=== PATIENT | female | born 1990 | race Two or more races ===

== ENCOUNTER 2020-06-16 22:55 | Emergency (ER) | payer SELFPAY ==
[~2020-06-16] VITALS: Ht 152.4 cm; Wt 104.3 kg
--- NOTE | 2020-06-16 23:09 | NUR ---
Dr. Galloway at bedside for MSE.
[2020-06-16 23:15] LABS: *BILIRUBIN,URIN NEGATIVE (NEGATIVE); *BLOOD, URINE NEGATIVE (NEGATIVE); *CLARITY,URINE CLEAR (CLEAR); *COLOR,URINE YELLOW (YELLOW); *KETONES,URINE NEGATIVE (NEGATIVE); *UROBILINOGEN,URINE 0.2 E.U./dl (NORMAL); LEUKOCYTE ESTERASE ,URINE NEGATIVE (NEGATIVE); NITRITE, URINE NEGATIVE (NEGATIVE); UGLUCOSE NEGATIVE (NEGATIVE)
[2020-06-16] MEDS ORDERED: NITROFURANTOIN/NITROFURAN MAC 100 MG CAPSULE PO ONE ×2 (23:29→23:30)
[2020-06-16] MEDS ORDERED: ONDANSETRON 4 MG/2 ML VIAL ONE (23:29)
[2020-06-16] MEDS ORDERED: HYDROMORPHONE 1 MG/1 ML DISP.SYRIN ONE ×2 (23:29→23:54)
[2020-06-16] MEDS ORDERED: HYDROMORPHONE 1 MG/1 ML DISP.SYRIN IV ONE (23:30)
[2020-06-16] MEDS ORDERED: CEFTRIAXONE 1 G in IV DEXTROSE 5% 50 ML IV ONE (23:30)
[2020-06-16] MEDS ORDERED: IV NORMAL SALINE 1000 ML BAG IV ONE (23:30)
[2020-06-16] MEDS ORDERED: ONDANSETRON 4 MG/2 ML VIAL IV ONE (23:30)
[2020-06-16] MEDS ORDERED: CEFTRIAXONE /D5W 50ML IVPB **ER PYXIS IV ONE (23:30)
[2020-06-16 23:34] LABS: *URINE HCG, QUAL NEGATIVE (NEGATIVE)
[2020-06-16 23:47] LABS: BASOPHILS % (AUTO) 0.4 % (0.0-2.0); EOSINOPHILS # (AUTO) 0.5 K/uL (0.0-0.7); EOSINOPHILS % (AUTO) 4.5 % (0.0-7.0); HEMATOCRIT 32.6 % (31.2-41.9); HEMOGLOBIN 10.5 g/dL (10.9-14.3); LYMPHOCYTES % (AUTO) 28.9 % (20.5-51.5); MEAN CORPUSCULAR HEMOGLOBIN 23.4 uug (24.7-32.8); MEAN CORPUSCULAR HGB CONC 32 g/dL (32.3-35.6); MEAN CORPUSCULAR VOLUME 72.4 fL (75.5-95.3); MONOCYTES # (AUTO) 0.5 K/uL (2.0-10.0); MONOCYTES % (AUTO) 4.8 % (0.0-11.0); NEUTROPHILS # (AUTO) 6.3 K/uL (1.8-8.9); NEUTROPHILS % (AUTO) 61.4 % (38.5-71.5); PLATELET COUNT (AUTO) 282 K/uL (179-408); WHITE BLOOD COUNT (AUTO) 10.3 K/uL (3.8-11.8)
[2020-06-17] MEDS ORDERED: HYDROMORPHONE 1 MG/1 ML DISP.SYRIN IV ONE
[2020-06-17] MEDS ORDERED: SWABABLE VALVE TRANSFER SET EA MC ONE (00:01)
[2020-06-17] MEDS ORDERED: IOHEXOL 300MG/ML 100 ML INFUS..BTL ONE (00:01)
[2020-06-17] MEDS ORDERED: IV NORMAL SALINE 250 ML IV ONE (00:01)
[2020-06-17 00:04] LABS: BILIRUBIN,DIRECT 0.1 mg/dL (0.0-0.2); BILIRUBIN,TOTAL 0.4 mg/dL (0.2-1.0); CREATININE 0.8 mg/dL (0.6-1.3); POTASSIUM 3.6 mmol/L (3.5-5.1); TOTAL PROTEIN, SERUM 7.1 g/dL (6.4-8.2)
--- NOTE | 2020-06-17 00:24 | NUR ---
Patient returned from CT scan, set up for pelvic exam.
[2020-06-17 00:25] LABS: EOSINOPHILS % (MANUAL) 5 % (0-8); LYMPHOCYTES % (MANUAL) 25 % (20-40); MONOCYTES % (MANUAL) 5 % (2-10); NEUTROPHILS % (MANUAL) 65 % (42-75)
--- NOTE | 2020-06-17 00:31 | NUR ---
Dr. 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
--- NOTE | 2020-06-17 00:33 | NUR ---
Samples taken to lab.
[2020-06-17] MEDS ORDERED: OXYC-128 PO (00:57)
[2020-06-17 02:22] VITALS: BP 135/72
--- NOTE | 2020-06-17 02:22 | NUR ---
Patient discharged to home in stable condition. Written and verbal after care instructions given. Patient verbalizes understanding of instructions. Stressed follow up or return to ER for worsening s/s.
== END 2020-06-17 02:23 | disposition home or self-care (01) ==
LOC: MERGE 22:57 → ER 22:57
DX: R10.2 Pelvic and perineal pain (principal); M54.89 Other dorsalgia; R30.0 Dysuria; F17.210 Nicotine dependence, cigarettes, uncomplicated; Z88.1 Allergy status to other antibiotic agents
CPT/HCPCS: 36415; 74177; 76856; 80048; 80076; 81003; 83690; 84703; 85007; 85025; 87070; 87086; 87210; 96365; 96375; 96376; 99285; 99406; J0696; J1170 ×2; J2405; Q9967; 70030-TC; A4663; J7030; J7050

== ENCOUNTER 2020-08-20 01:06 | Emergency (ER) | payer SELFPAY ==
[~2020-08-20] VITALS: Ht 154.9 cm; Wt 101.6 kg
[~2020-08-20 01:06] MED LIST: OXYC-128 PO
--- NOTE | 2020-08-20 02:20 | NUR ---
Patient came into the ER along with her mother. patient is complaining of cysts in her armpits and a possible pilonidal abcess on her tailbone. Patient has evidence of past and current cysts in both armpits but has an enlarged cyst on the right armpit that seems to be really bothering her. No evidence of abcess on the sacrum. VS stable, no SOB or signs of distress.
--- NOTE | 2020-08-20 02:25 | NUR ---
Dr. Cole in to examine the patient. Orders received and carried out.
[2020-08-20] MEDS ORDERED: OXYCODONE/APAP 5-325 MG TABLET ONE (03:09)
[2020-08-20] MEDS ORDERED: OXYCODONE/APAP 5-325 MG TABLET PO ONE (03:15)
[2020-08-20] MEDS ORDERED: LIDOCAINE 2%-EPI 1:100,000 20 ML VIAL IJ ONE (03:15)
[2020-08-20 03:19] LABS: BASOPHILS % (AUTO) 0.6 % (0.0-2.0); EOSINOPHILS # (AUTO) 0.3 K/uL (0.0-0.7); EOSINOPHILS % (AUTO) 4.8 % (0.0-7.0); HEMATOCRIT 32.7 % (31.2-41.9); HEMOGLOBIN 10.6 g/dL (10.9-14.3); LYMPHOCYTES # (AUTO) 2.8 K/uL (20.0-40.0); LYMPHOCYTES % (AUTO) 38.2 % (20.5-51.5); MEAN CORPUSCULAR HEMOGLOBIN 24.1 uug (24.7-32.8); MEAN CORPUSCULAR HGB CONC 32 g/dL (32.3-35.6); MEAN CORPUSCULAR VOLUME 74.4 fL (75.5-95.3); MONOCYTES # (AUTO) 0.6 K/uL (2.0-10.0); MONOCYTES % (AUTO) 7.5 % (0.0-11.0); NEUTROPHILS # (AUTO) 3.6 K/uL (1.8-8.9); NEUTROPHILS % (AUTO) 48.9 % (38.5-71.5); PLATELET COUNT (AUTO) 276 K/uL (179-408); RED BLOOD CELL COUNT(AUTO) 4.39 MIL/uL (3.63-4.92); WHITE BLOOD COUNT (AUTO) 7.3 K/uL (3.8-11.8)
[2020-08-20 03:24] LABS: POTASSIUM 3.8 mmol/L (3.5-5.1)
[2020-08-20] MEDS ORDERED: SULF1TAB48 PO (03:42)
[2020-08-20] MEDS ORDERED: OXYC-128 PO (03:43)
--- NOTE | 2020-08-20 03:45 | NUR ---
Dr. Cole completed a lancing of the cyst on the right armpit. Minimal blood loss through the procedure. Wound packed with iodoform packing and wound cleaned with chlorhexadine and dressed with gauze and tegaderm. Patient tolerated procedure without complications or discomfort.
[2020-08-20] MEDS ORDERED: FERR325T28 PO (03:47)
--- NOTE | 2020-08-20 03:50 | NUR ---
Patient discharged to home in stable condition. Written and verbal wound care instructions given. Patient verbalizes understanding of instructions and all medications prescribed. Stressed follow up or return to ER for worsening s/s.
[2020-08-20 03:54] VITALS: BP 120/100
[2020-08-20] MEDS ORDERED: AMOX-430 PO (04:29)
== END 2020-08-20 03:50 | disposition home or self-care (01) ==
LOC: ER 01:11
DX: L02.411 Cutaneous abscess of right axilla (principal); D64.9 Anemia, unspecified; J45.909 Unspecified asthma, uncomplicated; M79.7 Fibromyalgia; Z83.3 Family history of diabetes mellitus; F17.200 Nicotine dependence, unspecified, uncomplicated; Z88.1 Allergy status to other antibiotic agents
CPT/HCPCS: 36415; 85025; 87070; 87077; A4663

== ENCOUNTER 2020-10-13 21:38 | Emergency (ER) | payer SELFPAY ==
[~2020-10-13] VITALS: Ht 154.9 cm; Wt 90.7 kg
[~2020-10-13 21:38] MED LIST changes: +AMOX-430 PO; +FERR325T28 PO
--- NOTE | 2020-10-13 21:55 | NUR ---
Pt came in with c/o dizziness. 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 Pt is A/O x4, no SOB or labored breathing. No c/o chest pain/pressure. No GI/ distress. Ambulatory. Bed in lowest position for safety precautions.
--- NOTE | 2020-10-13 21:59 | NUR ---
Dr. Cole, MSE in progress.
[2020-10-13] MEDS ORDERED: HYDROMORPHONE 1 MG/1 ML DISP.SYRIN IM ONE (22:15)
[2020-10-13] MEDS ORDERED: ONDANSETRON ODT 4 MG TAB.RAPDIS ONE (22:24)
[2020-10-13] MEDS: ONDANSETRON ODT 4 MG TAB.RAPDIS SL ONE (22:25)
[2020-10-13] MEDS ORDERED: HYDROMORPHONE 2 MG/1 ML DISP.SYRIN ONE (22:25)
[2020-10-13] MEDS: LIDOCAINE 2%-EPI 1:100,000 20 ML VIAL IJ ONE (22:39)
[2020-10-13] MEDS ORDERED: LIDOCAINE 2%-EPI 1:100,000 20 ML VIAL ONE (22:43)
[2020-10-13 22:44] LABS: CREATININE 0.7 mg/dL (0.6-1.3); POTASSIUM 4.1 mmol/L (3.5-5.1)
[2020-10-13 22:46] LABS: *BILIRUBIN,URIN NEGATIVE (NEGATIVE); *BLOOD, URINE NEGATIVE (NEGATIVE); *CLARITY,URINE CLEAR (CLEAR); *COLOR,URINE YELLOW (YELLOW); *KETONES,URINE NEGATIVE (NEGATIVE); *UROBILINOGEN,URINE 0.2 E.U./dl (NORMAL); LEUKOCYTE ESTERASE ,URINE TRACE (NEGATIVE); NITRITE, URINE NEGATIVE (NEGATIVE); PH,URINE 7.5 (5.0-8.0); UGLUCOSE NEGATIVE (NEGATIVE)
[2020-10-13] MEDS: HYDROMORPHONE 1 MG/1 ML DISP.SYRIN IV ONE (22:48)
[2020-10-13 22:50] LABS: BILIRUBIN,DIRECT 0.1 mg/dL (0.0-0.2); BILIRUBIN,TOTAL 0.2 mg/dL (0.2-1.0); TOTAL PROTEIN, SERUM 7.2 g/dL (6.4-8.2)
[2020-10-13 22:54] LABS: BASOPHILS % (AUTO) 0.4 % (0.0-2.0); EOSINOPHILS # (AUTO) 0.3 K/uL (0.0-0.7); HEMATOCRIT 35.5 % (31.2-41.9); HEMOGLOBIN 11.5 g/dL (10.9-14.3); LYMPHOCYTES # (AUTO) 1.8 K/uL (20.0-40.0); LYMPHOCYTES % (AUTO) 21.1 % (20.5-51.5); MEAN CORPUSCULAR HEMOGLOBIN 25.3 uug (24.7-32.8); MEAN CORPUSCULAR HGB CONC 33 g/dL (32.3-35.6); MEAN CORPUSCULAR VOLUME 77.8 fL (75.5-95.3); MONOCYTES # (AUTO) 0.5 K/uL (2.0-10.0); MONOCYTES % (AUTO) 5.8 % (0.0-11.0); NEUTROPHILS # (AUTO) 5.9 K/uL (1.8-8.9); NEUTROPHILS % (AUTO) 68.7 % (38.5-71.5); PLATELET COUNT (AUTO) 338 K/uL (179-408); RED BLOOD CELL COUNT(AUTO) 4.56 MIL/uL (3.63-4.92); WHITE BLOOD COUNT (AUTO) 8.5 K/uL (3.8-11.8)
[2020-10-13 22:55] LABS: BACTERIA,URINE FEW /HPF (NONE SEEN); RBC,URINE 0-3 /HPF (0-3); SQUAMOUS EPITHELIAL CELL,UR MANY /HPF (NONE SEEN)
[2020-10-13] MEDS ORDERED: OXYC-128 PO (23:50)
[2020-10-13] MEDS ORDERED: SULF1TAB48 PO (23:50)
--- NOTE | 2020-10-14 00:20 | NUR ---
Patient discharged to home in stable condition. A/O x4, no SOB or labored breathing. Afebrile. No c/o n/v. Written and verbal after care instructions given. Patient verbalizes understanding of instructions. Stressed follow up or return to ER for worsening s/s. Steady gait. Picked up by family.
[2020-10-14 00:24] VITALS: BP 142/90
== END 2020-10-14 00:20 | disposition home or self-care (01) ==
LOC: ER 21:39
DX: B34.9 Viral infection, unspecified (principal); D64.9 Anemia, unspecified; L02.412 Cutaneous abscess of left axilla; Z83.3 Family history of diabetes mellitus; J45.909 Unspecified asthma, uncomplicated; M79.7 Fibromyalgia; E66.9 Obesity, unspecified; Z68.37 Body mass index [BMI] 37.0-37.9, adult
CPT/HCPCS: 10061; 36415; 80048; 80076; 81001; 85025; 87040; 87070; 96374; 99284; J1170; 87077; A4663; Q0162

== ENCOUNTER 2020-10-16 20:24 | Emergency (ER) | payer SELFPAY ==
[~2020-10-16] VITALS: Ht 162.6 cm; Wt 104.3 kg
[~2020-10-16 20:24] MED LIST changes: +SULF1TAB48 PO
--- NOTE | 2020-10-16 20:30 | NUR ---
Pt BIB [facility] 83 d/t an allergic reaction to Bactrim. Pt is A/O x4, no c/o chest pain/pressure. No SOB or labored breathing. Pt states she took Benadryl at 1600 and felt better. Pt is cooperative, no slurred speech, complete sentences.
--- NOTE | 2020-10-16 20:34 | NUR ---
Dr. Moreno at bedside, MSE in progress.
[2020-10-16] MEDS ORDERED: EPINEPHRINE 1 MG/1 ML AMP ONE (20:43)
[2020-10-16] MEDS ORDERED: methylPREDNISolone SOD SUCC 125 MG/2 ML VIAL IV ONE (20:45)
[2020-10-16] MEDS ORDERED: diphenhydrAMINE 50 MG/1 ML VIAL IV ONE (20:45)
[2020-10-16] MEDS ORDERED: FAMOTIDINE. 20 MG/2 ML VIAL IV ONE ×2 (20:45→20:55)
[2020-10-16] MEDS ORDERED: EPINEPHRINE 1 MG/1 ML AMP SQ ONE (20:45)
[2020-10-16] MEDS ORDERED: diphenhydrAMINE 50 MG/1 ML VIAL ONE (20:54)
[2020-10-16] MEDS ORDERED: methylPREDNISolone SOD SUCC 125 MG/2 ML VIAL ONE (20:54)
[2020-10-16] MEDS ORDERED: KETOROLAC TROMETHAMINE 30 MG INJ IVP ONE (21:30)
[2020-10-16] MEDS ORDERED: LIDOCAINE VISCUS 2% 15 ML UDC MM ONE (21:30)
[2020-10-16] MEDS ORDERED: MAG HYDROX/AL HYDROX/SIMETH 30 ML LIQUID UDC PO ONE (21:30)
[2020-10-16] MEDS ORDERED: LIDOCAINE VISCUS 2% 15 ML UDC ONE (21:37)
[2020-10-16] MEDS ORDERED: KETOROLAC TROMETHAMINE 30 MG INJ ONE (21:37)
[2020-10-16] MEDS ORDERED: MAG HYDROX/AL HYDROX/SIMETH 30 ML LIQUID UDC ONE (21:37)
[2020-10-16] MEDS ORDERED: HYDROCODONE/APAP 5-325MG TABLET PO ONE (22:00)
[2020-10-16] MEDS ORDERED: PHENAZOPYRIDINE HCL 100 MG TABLET PO ONE (22:00)
[2020-10-16] MEDS ORDERED: ONDANSETRON 4 MG/2 ML VIAL IV ONE (22:30)
[2020-10-16] MEDS ORDERED: MORPHINE SULFATE 4 MG/1 ML DISP.SYRIN IV ONE (22:30)
[2020-10-16] MEDS ORDERED: FLUCONAZOLE 100 MG TABLET PO ONE (22:30)
[2020-10-16] MEDS ORDERED: IV NORMAL SALINE 1000 ML BAG IV ONE (22:30)
[2020-10-16] MEDS ORDERED: CLOT10TR6 MM (22:46)
[2020-10-16] MEDS ORDERED: MICO45CR77 VG (22:46)
[2020-10-16] MEDS ORDERED: HYDR-3980 PO (22:46)
[2020-10-16] MEDS ORDERED: ONDANSETRON 4 MG/2 ML VIAL ONE (22:47)
[2020-10-16] MEDS ORDERED: MORPHINE SULFATE 4 MG/1 ML DISP.SYRIN ONE (22:47)
[2020-10-16] MEDS ORDERED: FLUCONAZOLE 100 MG TABLET ONE (22:47)
[2020-10-16 23:22] LABS: *BILIRUBIN,URIN NEGATIVE (NEGATIVE); *COLOR,URINE YELLOW (YELLOW); *KETONES,URINE NEGATIVE (NEGATIVE); *UROBILINOGEN,URINE 0.2 E.U./dl (NORMAL); LEUKOCYTE ESTERASE ,URINE 2+ (NEGATIVE); NITRITE, URINE NEGATIVE (NEGATIVE); UGLUCOSE NEGATIVE (NEGATIVE)
[2020-10-16 23:25] LABS: *BLOOD, URINE TRACE (NEGATIVE); *CLARITY,URINE HAZY (CLEAR)
[2020-10-16 23:29] LABS: BACTERIA,URINE FEW /HPF (NONE SEEN); SQUAMOUS EPITHELIAL CELL,UR MODERATE /HPF (NONE SEEN)
--- NOTE | 2020-10-16 23:56 | NUR ---
Patient discharged to home in stable condition. A/O x4, no SOB or labored breathing. Afebrile. No c/o pain or discomfort. Written and verbal after care instructions given. Patient verbalizes understanding of instructions. Stressed follow up or return to ER for worsening s/s. Steady gait, picked up by family member.
[2020-10-16 23:57] VITALS: BP 104/68
[2020-10-17] MEDS ORDERED: HYDR-3980 PO (19:02)
[2020-10-17] MEDS ORDERED: FLUC200T PO (19:02)
== END 2020-10-16 23:58 | disposition home or self-care (01) ==
LOC: ER 20:26
DX: B37.0 Candidal stomatitis (principal); B37.3 Candidiasis of vulva and vagina; R73.9 Hyperglycemia, unspecified; J45.909 Unspecified asthma, uncomplicated; M79.7 Fibromyalgia; Z88.1 Allergy status to other antibiotic agents; Z88.2 Allergy status to sulfonamides; Z83.3 Family history of diabetes mellitus
CPT/HCPCS: 81001; 82962; 87086; 96361; 96372; 96374; 96375; 99284; J0171; J1200; J1885; J2270; J2405; J2930; J3490; A4663

== ENCOUNTER 2020-10-17 18:30 | Emergency (ER) | payer SELFPAY ==
[~2020-10-17] VITALS: Ht 162.6 cm; Wt 104.3 kg
[~2020-10-17 18:30] MED LIST changes: +CLOT10TR6 MM; +HYDR-3980 PO; +MICO45CR77 VG
[2020-10-17] MEDS ORDERED: ONDANSETRON ODT 4 MG TAB.RAPDIS SL ONE (19:00)
[2020-10-17] MEDS ORDERED: HYDROMORPHONE HCL 2 MG TABLET PO ONE (19:00)
[2020-10-17] MEDS ORDERED: FLUCONAZOLE 100 MG TABLET PO ONE (19:00)
--- NOTE | 2020-10-17 19:00 | NUR ---
chaperoned Dr. Galloway with vaginal eaxam.
[2020-10-17] MEDS ORDERED: HYDR-3980 PO (19:02)
[2020-10-17] MEDS ORDERED: FLUC200T PO (19:02)
[2020-10-17] MEDS ORDERED: ONDANSETRON ODT 4 MG TAB.RAPDIS ONE (19:12)
[2020-10-17] MEDS ORDERED: FLUCONAZOLE 100 MG TABLET ONE (19:13)
[2020-10-17] MEDS ORDERED: HYDROMORPHONE HCL 2 MG TABLET ONE (19:13)
[2020-10-17] MEDS ORDERED: LIDOCAINE VISCUS 2% 15 ML UDC ONE (19:33)
[2020-10-17] MEDS ORDERED: LIDOCAINE VISCUS 2% 15 ML UDC MM ONE (19:45)
== END 2020-10-17 19:36 | disposition home or self-care (01) ==
LOC: ER 18:32
DX: B37.3 Candidiasis of vulva and vagina (principal); G89.29 Other chronic pain; F17.210 Nicotine dependence, cigarettes, uncomplicated; Z83.3 Family history of diabetes mellitus; M79.7 Fibromyalgia; E66.9 Obesity, unspecified; Z68.39 Body mass index [BMI] 39.0-39.9, adult; F11.20 Opioid dependence, uncomplicated; Z88.1 Allergy status to other antibiotic agents; Z88.2 Allergy status to sulfonamides; R73.03 Prediabetes; J45.909 Unspecified asthma, uncomplicated
CPT/HCPCS: A4663; Q0162

== ENCOUNTER 2020-12-13 23:52 | Emergency (ER) | payer SELFPAY ==
[~2020-12-13] VITALS: Ht 162.6 cm; Wt 90.7 kg
[~2020-12-13 23:52] MED LIST changes: +FLUC200T PO
--- NOTE | 2020-12-14 00:29 | NUR ---
Dr. Moreno at bedside for mse
[2020-12-14] MEDS ORDERED: OXYCODONE/APAP 5-325 MG TABLET PO ONE (00:45)
[2020-12-14] MEDS ORDERED: AMOXicillin 250 MG CAPSULE PO ONE (00:45)
[2020-12-14] MEDS ORDERED: AMOX1TAB16 PO (00:47)
[2020-12-14] MEDS ORDERED: NEOM10DR11 RIGHT EAR (00:47)
[2020-12-14] MEDS ORDERED: OXYC-133 PO (00:47)
--- NOTE | 2020-12-14 00:49 | NUR ---
Pt has sharp intermittent rt ear pain 8/10 starting 2 days ago.
[2020-12-14] MEDS ORDERED: OXYCODONE/APAP 5-325 MG TABLET ONE (00:50)
[2020-12-14] MEDS ORDERED: AMOXicillin 250 MG CAPSULE ONE (00:50)
--- NOTE | 2020-12-14 00:53 | NUR ---
Patient discharged to home in stable condition. Written and verbal after care instructions given. Patient verbalizes understanding of instructions. Stressed follow up or return to ER for worsening s/s. Patient out of ER with steady gait, no acute signs of distress, VSS, all belongings taken.
[2020-12-14 00:54] VITALS: BP 149/97
== END 2020-12-14 00:55 | disposition home or self-care (01) ==
LOC: ER 23:54
DX: H66.91 Otitis media, unspecified, right ear (principal); Z88.1 Allergy status to other antibiotic agents; Z88.2 Allergy status to sulfonamides; G89.29 Other chronic pain; R73.03 Prediabetes; F11.20 Opioid dependence, uncomplicated; E66.9 Obesity, unspecified; Z68.34 Body mass index [BMI] 34.0-34.9, adult; M79.7 Fibromyalgia; J45.909 Unspecified asthma, uncomplicated
CPT/HCPCS: A4663

== ENCOUNTER 2021-04-16 16:54 | Emergency (ER) | payer SELFPAY ==
[~2021-04-16] VITALS: Ht 152.4 cm; Wt 106.6 kg
[~2021-04-16 16:54] MED LIST changes: +AMOX1TAB16 PO; +NEOM10DR11 RIGHT EAR; +OXYC-133 PO
--- NOTE | 2021-04-16 17:51 | NUR ---
Patient will wait in ER waiting room until an available ER room (with available ER nurse) opens up.
--- NOTE | 2021-04-16 18:11 | NUR ---
Urine sent to lab.
[2021-04-16 18:40] LABS: *BILIRUBIN,URIN NEGATIVE (NEGATIVE); *BLOOD, URINE 3+ (NEGATIVE); *CLARITY,URINE CLEAR (CLEAR); *COLOR,URINE YELLOW (YELLOW); *KETONES,URINE NEGATIVE (NEGATIVE); *UROBILINOGEN,URINE 0.2 E.U./dl (NORMAL); LEUKOCYTE ESTERASE ,URINE 1+ (NEGATIVE); NITRITE, URINE NEGATIVE (NEGATIVE); UGLUCOSE NEGATIVE (NEGATIVE)
[2021-04-16 18:41] LABS: *URINE HCG, QUAL NEGATIVE (NEGATIVE)
--- NOTE | 2021-04-16 19:19 | NUR ---
Patient is waiting comfortably in the ER waiting room, SBAR to propellant charge loader Albert.
--- NOTE | 2021-04-16 19:37 | NUR ---
Pt not in waiting room.
--- NOTE | 2021-04-16 20:33 | NUR ---
Dr. Galloway at bedside for MSE.
--- NOTE | 2021-04-16 20:35 | NUR ---
pt c/o blood in urine, pt c/o abd pain. pt amb to room without assist, denies c/p sob or dizziness.
--- NOTE | 2021-04-16 20:44 | NUR ---
pt went to cat scan.
[2021-04-16] MEDS ORDERED: ONDANSETRON ODT 4 MG TAB.RAPDIS SL ONE (20:45)
[2021-04-16] MEDS ORDERED: HYDROCODONE/APAP 10-325 MG TABLET PO ONE (20:45)
[2021-04-16 20:49] LABS: MEAN CORPUSCULAR HEMOGLOBIN 27.4 uug (24.7-32.8); MEAN CORPUSCULAR VOLUME 81.4 fL (75.5-95.3); PLATELET COUNT (AUTO) 315 K/uL (179-408)
[2021-04-16] MEDS ORDERED: HYDROCODONE/APAP 10-325 MG TABLET ONE (20:49)
[2021-04-16] MEDS ORDERED: ONDANSETRON ODT 4 MG TAB.RAPDIS ONE (20:49)
[2021-04-16 20:58] LABS: CREATININE 0.9 mg/dL (0.6-1.3)
[2021-04-16 21:03] LABS: BILIRUBIN,DIRECT 0.1 mg/dL (0.0-0.2); BILIRUBIN,TOTAL 0.2 mg/dL (0.2-1.0); TOTAL PROTEIN, SERUM 7.2 g/dL (6.4-8.2)
--- NOTE | 2021-04-16 21:05 | NUR ---
pt return from ct scan.
[2021-04-16] MEDS ORDERED: NITROFURANTOIN/NITROFURAN MAC 100 MG CAPSULE PO ONE ×2 (22:00→22:22)
[2021-04-16] MEDS ORDERED: NITR-84 PO (22:27)
[2021-04-16] MEDS ORDERED: HYDR-3980 PO (22:27)
--- NOTE | 2021-04-16 23:17 | NUR ---
Patient discharged to home in stable condition. Written and verbal after care instructions given. Patient verbalizes understanding of instructions. Stressed follow up or return to ER for worsening s/s. pt amb without assit, denies pain or sob.
[2021-04-16 23:18] VITALS: BP 150/80
[2021-04-17 05:35] LABS: BACTERIA,URINE FEW /HPF (NONE SEEN); SQUAMOUS EPITHELIAL CELL,UR MANY /HPF (NONE SEEN)
== END 2021-04-16 23:22 | disposition home or self-care (01) ==
LOC: ER 16:55
DX: R10.30 Lower abdominal pain, unspecified (principal); H92.01 Otalgia, right ear; R30.0 Dysuria; R31.29 Other microscopic hematuria; F17.210 Nicotine dependence, cigarettes, uncomplicated; Z83.3 Family history of diabetes mellitus; Z88.1 Allergy status to other antibiotic agents; Z88.2 Allergy status to sulfonamides; G89.29 Other chronic pain; E66.9 Obesity, unspecified; Z68.42 Body mass index [BMI] 45.0-49.9, adult; M79.7 Fibromyalgia; F11.20 Opioid dependence, uncomplicated; J45.909 Unspecified asthma, uncomplicated
CPT/HCPCS: 83690; 84703; 85025; 87086; A4663; Q0162

== ENCOUNTER 2021-06-24 01:16 | Emergency (ER) | payer SELFPAY ==
[~2021-06-24] VITALS: Ht 152.4 cm; Wt 104.3 kg
[~2021-06-24 01:16] MED LIST changes: +NITR-84 PO
[2021-06-24 02:23] LABS: HEMATOCRIT 36.3 % (31.2-41.9); MEAN CORPUSCULAR HEMOGLOBIN 27.2 uug (24.7-32.8); PLATELET COUNT (AUTO) 343 K/uL (179-408)
[2021-06-24 02:29] LABS: CREATININE 0.8 mg/dL (0.6-1.3); POTASSIUM 3.7 mmol/L (3.5-5.1)
[2021-06-24 02:34] LABS: BILIRUBIN,DIRECT 0.1 mg/dL (0.0-0.2); BILIRUBIN,TOTAL 0.4 mg/dL (0.2-1.0); TOTAL PROTEIN, SERUM 8.1 g/dL (6.4-8.2)
[2021-06-24] MEDS ORDERED: MORPHINE SULFATE 2 MG/1 ML DISP.SYRIN IM ONE (02:45)
[2021-06-24] MEDS ORDERED: METOCLOPRAMIDE HCL 10 MG/2 ML VIAL IM ONE (02:45)
[2021-06-24] MEDS ORDERED: diphenhydrAMINE 50 MG/1 ML VIAL IM ONE (02:45)
[2021-06-24] MEDS ORDERED: KETOROLAC TROMETHAMINE 60 MG INJ IM ONE ×2 (02:45→03:17)
[2021-06-24] MEDS ORDERED: diphenhydrAMINE 50 MG/1 ML VIAL ONE (03:16)
--- NOTE | 2021-06-24 03:16 | NUR ---
PATIENT OUT OF UNIT FOR CT SCAN
[2021-06-24] MEDS ORDERED: MORPHINE SULFATE 2 MG/1 ML DISP.SYRIN ONE (03:17)
[2021-06-24] MEDS ORDERED: METOCLOPRAMIDE HCL 10 MG/2 ML VIAL ONE (03:17)
--- NOTE | 2021-06-24 03:25 | NUR ---
PATIENT BACK FROM CT SCAN WITH NO DISTRESS NOTED.
[2021-06-24] MEDS ORDERED: MORPHINE SULFATE 4 MG/1 ML DISP.SYRIN IM ONE (04:00)
[2021-06-24] MEDS ORDERED: MORPHINE SULFATE 4 MG/1 ML DISP.SYRIN ONE (04:11)
[2021-06-24 06:10] VITALS: BP 131/72
--- NOTE | 2021-06-24 06:10 | NUR ---
Patient discharged to home in stable condition WITH FAMILY TAKING PATIENT HOME. Written and verbal after care instructions given. Patient verbalizes understanding of instructions. Stressed follow up or return to ER for worsening s/s.
== END 2021-06-24 06:11 | disposition home or self-care (01) ==
LOC: ER 01:39
DX: R51.9 Headache, unspecified (principal); J45.909 Unspecified asthma, uncomplicated; F17.210 Nicotine dependence, cigarettes, uncomplicated; Z88.1 Allergy status to other antibiotic agents; Z88.8 Allergy status to other drugs, medicaments and biological substances; Z79.2 Long term (current) use of antibiotics; Z79.899 Other long term (current) drug therapy
CPT/HCPCS: 70450; 80048; 80076; 84702; 85025; 96372 ×5; 99284; J1200; J1885; J2270 ×2; J2765; A4663

== ENCOUNTER 2021-09-26 06:35 | Emergency (ER) | payer SELFPAY ==
[~2021-09-26] VITALS: Ht 152.4 cm; Wt 104.3 kg
[2021-09-26] MEDS ORDERED: LIDOCAINE 1%-EPI 1:100,000 20 ML VIAL ONE (07:11)
--- NOTE | 2021-09-26 07:22 | NUR ---
PT IS IN ROOM #1B. DR ENG EVALUATED THE PT.
[2021-09-26] MEDS ORDERED: CLINDAMYCIN HCL 300 MG CAPSULE ONE (07:27)
[2021-09-26] MEDS ORDERED: CLINDAMYCIN HCL 150 MG CAPSULE PO ONE (07:30)
--- NOTE | 2021-09-26 07:31 | NUR ---
Female results engineer accompanied female patient for (Dr Quintana).
[2021-09-26] MEDS ORDERED: CLIN300C12 PO (07:39)
[2021-09-26] MEDS ORDERED: TRAM50TA2 PO (07:39)
[2021-09-26] MEDS ORDERED: IBUP-1955 PO (07:39)
[2021-09-26] MEDS ORDERED: HYDROCODONE/APAP 10-325 MG TABLET ONE (07:43)
[2021-09-26] MEDS ORDERED: LIDOCAINE 1%-EPI 1:100,000 20 ML VIAL IJ ONE (07:45)
[2021-09-26] MEDS ORDERED: HYDROCODONE/APAP 10-325 MG TABLET PO ONE (07:45)
--- NOTE | 2021-09-26 07:52 | NUR ---
PT WAS D/C'd TO HOME. D/C INSTRUCTIONS GIVEN TO THE PT BY DR ENG.
[2021-09-26 07:53] VITALS: BP 142/71
== END 2021-09-26 07:54 | disposition home or self-care (01) ==
LOC: ER 06:39
DX: L02.415 Cutaneous abscess of right lower limb (principal); K08.89 Other specified disorders of teeth and supporting structures; K12.2 Cellulitis and abscess of mouth; K02.9 Dental caries, unspecified; E66.9 Obesity, unspecified; Z68.41 Body mass index [BMI] 40.0-44.9, adult; M79.7 Fibromyalgia; F17.210 Nicotine dependence, cigarettes, uncomplicated; G89.29 Other chronic pain; F11.20 Opioid dependence, uncomplicated
CPT/HCPCS: 10060; 76882; 99284; J3490; A4663

== ENCOUNTER 2021-10-01 21:48 | Emergency (ER) | payer MEDICAID ==
[~2021-10-01] VITALS: Ht 152.4 cm; Wt 104.3 kg
[~2021-10-01 21:48] MED LIST changes: +CLIN300C12 PO; +IBUP-1955 PO; +TRAM50TA2 PO
--- NOTE | 2021-10-01 21:55 | NUR ---
PT CAME INTO ER C/O BODYACHES THAT STARTED YESTERDAY ACCOMPANIED WITH 6 EPSIDOES OF N/V. NO SOB OR LABORED BREATHING, AFEBRILE. DENIES CP/PRESSURE AT THIS TIME. CLEAR SPEECH, COMPLETE SENTENCES. AMBULATING WITH STEADY GAIT. ABLE TO MOVE ALL EXTREMITIES WNL. A/O X4.
--- NOTE | 2021-10-01 22:24 | NUR ---
DR. ENG AT BEDSIDE, MSE IN PROGRESS.
[2021-10-01] MEDS ORDERED: ONDANSETRON 4 MG/2 ML VIAL ONE ×2 (22:28→23:31)
[2021-10-01] MEDS ORDERED: ONDANSETRON 4 MG/2 ML VIAL IV ONE ×2 (22:30→23:30)
[2021-10-01] MEDS ORDERED: IV NORMAL SALINE 1000 ML BAG IV ONE (22:30)
--- NOTE | 2021-10-01 22:33 | NUR ---
xray at bedside.
--- NOTE | 2021-10-01 23:00 | NUR ---
[facility] ENG FOR GROIN EXAM.
[2021-10-01 23:30] LABS: HEMATOCRIT 32.1 % (31.2-41.9); MEAN CORPUSCULAR HEMOGLOBIN 27.3 uug (24.7-32.8); MEAN CORPUSCULAR VOLUME 80.3 fL (75.5-95.3); PLATELET COUNT (AUTO) 189 K/uL (179-408)
[2021-10-01 23:35] LABS: BILIRUBIN,DIRECT 0.1 mg/dL (0.0-0.2); BILIRUBIN,TOTAL 0.2 mg/dL (0.2-1.0); CREATININE 0.7 mg/dL (0.6-1.3); POTASSIUM 3.8 mmol/L (3.5-5.1); TOTAL PROTEIN, SERUM 7.3 g/dL (6.4-8.2)
[2021-10-01 23:40] LABS: *BILIRUBIN,URIN NEGATIVE (NEGATIVE); *BLOOD, URINE 3+ (NEGATIVE); *CLARITY,URINE CLEAR (CLEAR); *COLOR,URINE YELLOW (YELLOW); *KETONES,URINE NEGATIVE (NEGATIVE); *UROBILINOGEN,URINE 0.2 E.U./dl (NORMAL); LEUKOCYTE ESTERASE ,URINE NEGATIVE (NEGATIVE); NITRITE, URINE NEGATIVE (NEGATIVE); UGLUCOSE NEGATIVE (NEGATIVE)
[2021-10-01 23:55] LABS: *URINE HCG, QUAL NEGATIVE (NEGATIVE)
[2021-10-01] MEDS ORDERED: KETOROLAC TROMETHAMINE 30 MG INJ ONE (23:55)
[2021-10-01 23:56] LABS: BACTERIA,URINE FEW /HPF (NONE SEEN); RBC,URINE 50-80 /HPF (0-3); SQUAMOUS EPITHELIAL CELL,UR MODERATE /HPF (NONE SEEN); WBC,URINE 0-3 /HPF (0-3)
[2021-10-02] MEDS ORDERED: KETOROLAC TROMETHAMINE 30 MG INJ IVP ONE
--- NOTE | 2021-10-02 00:06 | NUR ---
PT RETURNED FROM CT.
[2021-10-02] MEDS ORDERED: HYDROCODONE/APAP 10-325 MG TABLET ONE (01:27)
[2021-10-02] MEDS ORDERED: HYDROCODONE/APAP 10-325 MG TABLET PO ONE (01:30)
[2021-10-02] MEDS ORDERED: ONDA4TAB5 PO (01:44)
--- NOTE | 2021-10-02 02:53 | NUR ---
Patient discharged to home in stable condition. Written and verbal after care instructions given. Patient verbalizes understanding of instructions. Stressed follow up or return to ER for worsening s/s. Steady gait, picked upo by sister. Denies any pain/discomfort upon discharge.
[2021-10-02 02:54] VITALS: BP 147/83
== END 2021-10-02 02:55 | disposition home or self-care (01) ==
LOC: ER 21:51
DX: U07.1 COVID-19 (principal); R11.10 Vomiting, unspecified; R31.9 Hematuria, unspecified; G89.29 Other chronic pain; F11.20 Opioid dependence, uncomplicated; E66.01 Morbid (severe) obesity due to excess calories; Z68.41 Body mass index [BMI] 40.0-44.9, adult; Z88.1 Allergy status to other antibiotic agents; Z88.2 Allergy status to sulfonamides; M79.7 Fibromyalgia; F17.210 Nicotine dependence, cigarettes, uncomplicated; J45.909 Unspecified asthma, uncomplicated; R10.11 Right upper quadrant pain
CPT/HCPCS: 36415; 71045; 74176; 80048; 80076; 81001; 83690; 84484; 84703; 85025; 87400; 87426; 93005; 96361; 96374; 96375; 99285; C9803; J1885; J2405 ×2; J7040; U0003; A4663

== ENCOUNTER 2021-10-17 15:11 | Emergency (ER) | payer MEDICAID ==
[~2021-10-17] VITALS: Ht 152.4 cm; Wt 104.3 kg
[~2021-10-17 15:11] MED LIST changes: +ONDA4TAB5 PO
[2021-10-17] MEDS ORDERED: IV NORMAL SALINE 1000 ML BAG IV ONE (15:30)
[2021-10-17] MEDS ORDERED: ONDANSETRON 4 MG/2 ML VIAL IV ONE (15:30)
--- NOTE | 2021-10-17 15:46 | NUR ---
Note [email or web address] in EDM - 10/17/21 at 1819 by RANI Pt started yelling at staff stating "you made me pee in my pants!". Matthew garcia was called. Pt uses profanity toward staff, and refuses to calm down at this time. mobile security architect x2 at the bedside.
--- NOTE | 2021-10-17 15:46 | NUR ---
Pt started yelling at staff stating "you made me pee in my pants!". Code radha was called. Pt uses profanity toward staff, and refuses to calm down at this time. systems security consultant x2 at the bedside.
[2021-10-17] MEDS ORDERED: ONDANSETRON 4 MG/2 ML VIAL ONE (15:55)
[2021-10-17] MEDS ORDERED: FAMOTIDINE. 20 MG/2 ML VIAL IV ONE ×2 (16:00→16:03)
[2021-10-17 16:01] LABS: HEMATOCRIT 35.7 % (31.2-41.9); MEAN CORPUSCULAR HEMOGLOBIN 26.6 uug (24.7-32.8); MEAN CORPUSCULAR VOLUME 79.4 fL (75.5-95.3); PLATELET COUNT (AUTO) 300 K/uL (179-408)
[2021-10-17 16:11] LABS: BILIRUBIN,DIRECT 0.2 mg/dL (0.0-0.2); BILIRUBIN,TOTAL 0.6 mg/dL (0.2-1.0); CREATININE 0.7 mg/dL (0.6-1.3); POTASSIUM 3.8 mmol/L (3.5-5.1); TOTAL PROTEIN, SERUM 7.1 g/dL (6.4-8.2)
[2021-10-17] MEDS ORDERED: ACETAMINOPHEN 325 MG TABLET PO ONE (16:15)
[2021-10-17] MEDS ORDERED: ACETAMINOPHEN 325 MG TABLET ONE (17:06)
--- NOTE | 2021-10-17 17:42 | NUR ---
PT SEEN AND EVALUATED BY DR GLASS.
--- NOTE | 2021-10-17 17:47 | NUR ---
Pt started yelling at staff stating "you made me pee in my pants!". Code radha was called. Pt uses profanity toward staff, and refuses to calm down at this time. personal security specialist x2 at the bedside.
--- NOTE | 2021-10-17 17:58 | NUR ---
IV removed. Catheter intact and site benign. Pressure and 4x4 gauze applied to site. No bleeding noted.
[2021-10-17] MEDS ORDERED: ASPIRIN/ACETAMINOPHEN/CAFFEINE TABLET PO STA (18:06)
[2021-10-17] MEDS ORDERED: ONDA4TAB5 PO (18:13)
[2021-10-17] MEDS ORDERED: FAMO-132 PO (18:13)
--- NOTE | 2021-10-17 18:41 | NUR ---
Patient discharged to home in stable condition. Written and verbal after care instructions given. Patient verbalizes understanding of instructions. Stressed follow up or return to ER for worsening s/s. Pt left ER escorted by security.
[2021-10-17 18:42] VITALS: BP 134/67
== END 2021-10-17 18:45 | disposition home or self-care (01) ==
LOC: ER 15:11
DX: R10.11 Right upper quadrant pain (principal); K57.30 Diverticulosis of large intestine without perforation or abscess without bleeding; E66.9 Obesity, unspecified; Z68.41 Body mass index [BMI] 40.0-44.9, adult; I10 Essential (primary) hypertension; G89.29 Other chronic pain; M79.7 Fibromyalgia; J45.909 Unspecified asthma, uncomplicated; Z83.3 Family history of diabetes mellitus; Z86.16 Personal history of COVID-19; F11.20 Opioid dependence, uncomplicated
CPT/HCPCS: 36415; 74176; 76705; 80048; 80076; 83690; 84702; 85025; 96361; 96374; 96375; 99285; J2405; J3490; J7040; A4663